=== PATIENT | female | born 1935 | race Caucasian/White ===

== ENCOUNTER 2019-02-24 12:12 | Emergency (ER) | payer MEDICARE, BC ==
[~2019-02-24] VITALS: Ht 149.9 cm; Wt 45.4 kg
[2019-02-24] MEDS ORDERED: ZOCOR20 MG PO (12:25)
[2019-02-24] MEDS ORDERED: BYSTOLIC 5 MG5 M1 PO (12:25)
[2019-02-24] MEDS ORDERED: SYNTHROID25 MC1 PO (12:25)
[2019-02-24] MEDS ORDERED: B 12 INJECTION (12:26)
[2019-02-24 13:01] LABS: ABSOLUTE EOSINOPHILS 0.1 thou/uL (0.0-0.7); ABSOLUTE LYMPHOCYTES 1.9 thou/uL (0.8-5.3); ABSOLUTE MONOCYTES 0.3 thou/uL (0.0-1.2); BASOPHILS 1.1 %; EOSINOPHILS 3.1 %; HEMOGLOBIN 13.7 gm/dL (12.0-15.0); LYMPHOCYTES 43.2 %; MCH 32.1 pg (26.0-34.0); MCHC 34.2 g/dL (28.0-37.0); MONOCYTES 6.5 %; NUCLEATED RBCS 0 /100WBC; PLATELET COUNT* 168 thou/uL (150-400); POLYS 46.1 %; RBC 4.26 mil/uL (4.20-5.00); RDW-CV 15.3 % (10.5-14.5); WBC 4.4 thou/uL (4.0-11.0)
[2019-02-24 13:21] LABS: ALBUMIN 4.1 g/dL (3.4-5.0); ALKALINE PHOSPHATASE 46 U/L (46-116); ANION GAP 9 mmol/L (7-16); BUN 10 mg/dL (7-18); CALCIUM 9.7 mg/dL (8.5-10.1); CHLORIDE 102 mmol/L (98-107); CO2 31 mmol/L (21-32); CREATININE 1.7 mg/dL (0.6-1.3); GLUCOSE 121 mg/dL (70-99); NT-PRO BRAIN NAT PEPTIDE 180 pg/mL (<300); SGPT 62 U/L (30-65); SODIUM 142 mmol/L (136-145); TOTAL BILIRUBIN 0.6 mg/dL (<0.1-1.0); TOTAL PROTEIN 8.1 g/dL (6.4-8.2); TROPONIN-I LEVEL <0.06 ng/mL (<0.06)
[2019-02-24 13:28] LABS: POTASSIUM 3.5 mmol/L (3.5-5.1); SGOT 74 U/L (15-37)
[2019-02-24 13:39] LABS: APTT 30.4 Seconds (25.0-31.3); INR 1.1; PROTIME 11.6 Seconds (9.20-11.50)
[2019-02-24 14:15] VITALS: BP 152/90
--- NOTE | 2019-02-25 15:07 | EKG ---
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 : 1935 Requested By: Jorge L Graham Order Number: [id number] MD: Zachariah Ardon Measurements Intervals [place] Rate: 45 P: MO: QRS: 3 QRSD: 94 T: 172 QT: 474 QTc: 411 Interpretive Statements sinus bradycardia Abnormal T, consider ischemia, lateral leads Compared to ECG 04/21/2008 15:07:20 Junctional rhythm now present Sinus rhythm no longer present Possible ischemia still present Electronically Signed On 02-25-2019 15:06:53 CDT by Zachariah Ardon [email or web address] <ELECTRONICALLY SIGNED> By: Zachariah Ardon MD, [facility] 02/25/19 1506 1223 1223 Zachariah Ardon MD, [facility] /EPI
== END 2019-02-24 14:18 | disposition short-term general hospital (02) ==
LOC: M.ERS 12:12
PROVIDERS: Family Medicine
DX: I61.9 Nontraumatic intracerebral hemorrhage, unspecified (principal); R00.1 Bradycardia, unspecified; R42 Dizziness and giddiness; E03.9 Hypothyroidism, unspecified; I12.9 Hypertensive chronic kidney disease with stage 1 through stage 4 chronic kidney disease, or unspecified chronic kidney disease; N18.9 Chronic kidney disease, unspecified

== ENCOUNTER 2020-02-01 07:11 | Emergency (ER) | payer MEDICARE, BC ==
[~2020-02-01] VITALS: Ht 149.9 cm; Wt 49.4 kg
[~2020-02-01 07:11] MED LIST: B 12 INJECTION; BYSTOLIC 5 MG5 M1 PO; SYNTHROID25 MC1 PO; ZOCOR20 MG PO
[2020-02-01 08:15] LABS: ABSOLUTE EOSINOPHILS 0.1 thou/uL (0.0-0.7); ABSOLUTE LYMPHOCYTES 1.2 thou/uL (0.8-5.3); ABSOLUTE MONOCYTES 0.3 thou/uL (0.0-1.2); ABSOLUTE NEUTROPHILS 1.6 thou/uL (1.6-8.1); BASOPHILS 0.6 %; EOSINOPHILS 3.6 %; HEMATOCRIT 35.5 % (37.0-47.0); MCHC 33.9 g/dL (28.0-37.0); MCV 94.3 fL (80.0-100.0); MONOCYTES 7.9 %; MPV 7.2 fl. (7.2-11.1); NUCLEATED RBCS 0 /100WBC; PLATELET COUNT* 186 thou/uL (150-400); POLYS 50.9 %; RBC 3.77 mil/uL (4.20-5.00); RDW-CV 17.5 % (10.5-14.5); WBC 3.2 thou/uL (4.0-11.0)
[2020-02-01 08:23] LABS: INR 1.2; PROTIME 11.9 Seconds (9.20-11.50)
[2020-02-01 08:24] LABS: CALCIUM 9.4 mg/dL (8.5-10.1); CREATININE 1.3 mg/dL (0.6-1.3); POTASSIUM 3.5 mmol/L (3.5-5.1)
[2020-02-01 08:41] LABS: ALBUMIN 4.1 g/dL (3.4-5.0); TOTAL BILIRUBIN 0.9 mg/dL (<0.1-1.0); TOTAL PROTEIN 7.9 g/dL (6.4-8.2)
[2020-02-01 10:23] VITALS: BP 142/104
--- NOTE | 2020-02-01 17:42 | EKG ---
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: : 1935 Requested By: Rajiv Singh Order Number: [id number] MD: Hamilton Mcconnell Measurements Intervals [place] Rate: 60 P: -74 AL: 249 QRS: 0 QRSD: 87 T: 194 QT: 526 QTc: 526 Interpretive Statements Sinus or ectopic atrial rhythm Prolonged AL interval Low voltage, extremity leads Nonspecific T abnrm, anterolateral leads Prolonged QT interval Compared to ECG 02/24/2019 12:23:26 Ectopic atrial rhythm now present First degree AV block now present Prolonged QT interval now present Sinus bradycardia no longer present T-wave abnormality no longer present Possible ischemia no longer present Electronically Signed On 02-01-2020 17:41:47 [employer] by Hamilton Mcconnell [email or web address] <ELECTRONICALLY SIGNED> By: Hamilton Mcconnell MD, [facility] 02/01/20 1741 08 Hamilton Mcconnell MD, [facility] /EPI
== END 2020-02-01 10:24 | disposition home or self-care (01) ==
LOC: M.ERS 07:11
PROVIDERS: Emergency Medicine
DX: R42 Dizziness and giddiness (principal); R53.1 Weakness; I12.9 Hypertensive chronic kidney disease with stage 1 through stage 4 chronic kidney disease, or unspecified chronic kidney disease; E03.9 Hypothyroidism, unspecified; N18.9 Chronic kidney disease, unspecified